=== PATIENT | female | born 1980 | race Caucasian/White ===

== ENCOUNTER 2020-12-08 18:14 | Emergency (ER) | payer MEDICAID ==
[~2020-12-08] VITALS: Ht 162.6 cm; Wt 115.7 kg
[2020-12-08 18:55] LABS: Urine Bacteria FEW /hpf (None Seen); Urine Blood Negative /uL (Negative); Urine Specific Gravity 1.019 (1.001-1.035); Urine WBC <1 /hpf (0 - 5)
[2020-12-08 19:32] LABS: Basophils # (auto) 0 10 ^3/uL (0-0.2); Basophils % (auto) 0.5 % (0.0-2.0); Eosinophils # (auto) 0.3 10 ^3/uL (0-0.8); Eosinophils % (auto) 4.7 % (0.0-7.0); Hematocrit 43.9 % (36.0-46.0); Hemoglobin 15.2 g/dL (12.2-16.2); Lymphocytes # (auto) 1.8 10 ^3/uL (0.4-5.4); Lymphocytes % (auto) 25.1 % (10.0-50.0); Mean Corpuscular Hemoglobin 28.5 pg (28.0-32.0); Mean Corpuscular Hgb Conc. 34.7 g/dL (32.0-36.0); Mean Corpuscular Volume 82.2 fL (80.0-100.0); Monocytes # (auto) 0.3 10 ^3/uL (0-1.3); Monocytes % (auto) 4.7 % (0.0-12.0); Neutrophils # (auto) 4.7 10 ^3/uL (1.6-8.6); Nucleated Red Blood Cells % 0.5 %; Platelet Count (auto) 335 10^3/uL (140-450); Red Blood Cells 5.34 10^6/uL (4.0-5.20); Red Cell Distribution Width 12.6 % (11.8-14.3); White Blood Cell 7.2 10^3/uL (4.4-10.8)
[2020-12-08 19:44] LABS: INR 0.99 (0.9-1.15)
[2020-12-08 19:50] LABS: Alanine Aminotransferase 24 U/L (13-56); Albumin 3.8 g/dL (3.4-5.0); Anion Gap 8 (5-15); Aspartate Aminotransferase 13 U/L (15-37); BUN/Creatinine Ratio 12.5; Blood Urea Nitrogen 8 mg/dL (7-18); Calcium 8.7 mg/dL (8.5-10.1); Carbon Dioxide 27 mmol/L (21-32); Chloride 103 mmol/L (98-107); GFR African American 132 mL/min; GFR Non-African American 109 mL/min; Glucose 101 mg/dL (74-106); Potassium 3.7 mmol/L (3.5-5.1); Sodium 138 mmol/L (136-145)
[2020-12-08 19:52] LABS: Alkaline Phosphatase 57 U/L (45-117); Bilirubin, Total 0.5 mg/dL (0.2-1.0); Total Protein 7.5 g/dL (6.4-8.2)
[2020-12-08 20:00] VITALS: BP 147/78
== END 2020-12-08 23:36 | disposition home or self-care (01) ==
LOC: ER 18:14
DX: A08.4 Viral intestinal infection, unspecified (principal); Z20.822 Contact with and (suspected) exposure to COVID-19
CPT/HCPCS: 36415; 71045; 80053; 81001; 81025; 83605; 83690; 85025; 85610; 87426

== ENCOUNTER 2020-12-22 10:11 | Emergency (ER) | payer MEDICAID ==
[~2020-12-22] VITALS: Ht 162.6 cm; Wt 136.1 kg
[2020-12-22] MEDS ORDERED: PROCHLORPERAZINE EDISYLATE 5 MG/ML 2ML VIAL IV ONE (10:30)
[2020-12-22] MEDS ORDERED: SODIUM CHLORIDE 0.9% 1,000 ML IVB ONE ×2 (10:30→11:30)
[2020-12-22 10:44] VITALS: BP 169/70
[2020-12-22 11:02] LABS: Basophils # (auto) 0.1 10 ^3/uL (0-0.2); Basophils % (auto) 0.7 % (0.0-2.0); Eosinophils # (auto) 0.2 10 ^3/uL (0-0.8); Eosinophils % (auto) 1.7 % (0.0-7.0); Hematocrit 45.5 % (36.0-46.0); Hemoglobin 16.2 g/dL (12.2-16.2); Lymphocytes # (auto) 1.4 10 ^3/uL (0.4-5.4); Lymphocytes % (auto) 13.3 % (10.0-50.0); Mean Corpuscular Hgb Conc. 35.6 g/dL (32.0-36.0); Mean Corpuscular Volume 81.4 fL (80.0-100.0); Monocytes # (auto) 0.3 10 ^3/uL (0-1.3); Monocytes % (auto) 3.3 % (0.0-12.0); Neutrophils # (auto) 8.3 10 ^3/uL (1.6-8.6); Nucleated Red Blood Cells % 1.5 %; Platelet Count (auto) 316 10^3/uL (140-450); Red Blood Cells 5.59 10^6/uL (4.0-5.20); Red Cell Distribution Width 12.9 % (11.8-14.3); White Blood Cell 10.2 10^3/uL (4.4-10.8)
[2020-12-22] MEDS ORDERED: DONNATAL 5ml ORAL Elix (BELLADONNA ALK-PHENOBARB) PO ONE (11:30)
[2020-12-22] MEDS ORDERED: ALUM & MAG HYDROX-SIMETH LIQ(MAALOX) 30 ML PO ONE (11:30)
[2020-12-22] MEDS ORDERED: FAMOTIDINE 20 MG TAB PO ONE (11:30)
[2020-12-22] MEDS ORDERED: PROMETHAZINE HCL 25 MG/ML 1ML IV PRN (11:30)
[2020-12-22 11:35] LABS: Potassium 3.4 mmol/L (3.5-5.1)
[2020-12-22 11:41] LABS: Albumin 3.5 g/dL (3.4-5.0); BUN/Creatinine Ratio 13.4; Bilirubin, Total 0.3 mg/dL (0.2-1.0); Calcium 8.8 mg/dL (8.5-10.1); Total Protein 7.4 g/dL (6.4-8.2)
[2020-12-22 12:10] LABS: Urine Bacteria NONE SEEN /hpf (None Seen); Urine Blood Negative /uL (Negative); Urine Specific Gravity 1.016 (1.001-1.035); Urine WBC 1 /hpf (0 - 5)
[2020-12-22 12:45] LABS: Alcohol, Urine < 3.0 mg/dL (0-10); Amphetamine Screen, Urine NEGATIVE (NEGATIVE); Cannabinoid Screen, Urine POSITIVE (NEGATIVE); Cocaine Screen, Urine NEGATIVE (NEGATIVE); Opiate Scree,Urine NEGATIVE (NEGATIVE); Phencyclidine Screen, Urine NEGATIVE (NEGATIVE)
[2020-12-22 12:52] LABS: Barbiturate Scree,Urine NEGATIVE (NEGATIVE); Benzodiazephine Screen, Urine NEGATIVE (NEGATIVE)
== END 2020-12-22 11:55 | disposition left against medical advice (07) ==
LOC: ER 10:11
DX: R11.2 Nausea with vomiting, unspecified (principal); F12.90 Cannabis use, unspecified, uncomplicated; E11.9 Type 2 diabetes mellitus without complications; R10.13 Epigastric pain; Z90.710 Acquired absence of both cervix and uterus
CPT/HCPCS: 36415; 80053; 80307; 81001; 83690; 83735; 85025; 96361; 96374; 99284; J0780; J7030

== ENCOUNTER 2022-08-24 17:10 | Emergency (ER) | payer MEDICAID, OTHER ==
[~2022-08-24] VITALS: Ht 162.6 cm; Wt 120.0 kg
[2022-08-25] MEDS ORDERED: PERCOT PO (01:00)
[2022-08-25 01:20] VITALS: BP 133/77
== END 2022-08-25 01:22 | disposition home or self-care (01) ==
LOC: ER 17:10
DX: G89.11 Acute pain due to trauma (principal); R51.9 Headache, unspecified; R07.89 Other chest pain; Z90.710 Acquired absence of both cervix and uterus; V49.9XXA Car occupant (driver) (passenger) injured in unspecified traffic accident, initial encounter; Y93.89 Activity, other specified; Y92.410 Unspecified street and highway as the place of occurrence of the external cause; Y99.8 Other external cause status
CPT/HCPCS: 70450; 71045; 71250; 72125; 74176

== ENCOUNTER 2022-12-10 18:16 | Emergency (ER) | payer MEDICAID, OTHER ==
[~2022-12-10] VITALS: Ht 162.6 cm; Wt 113.4 kg
[~2022-12-10 18:16] MED LIST: PERCOT PO
[2022-12-10 19:20] VITALS: BP 157/111
== END 2022-12-10 19:44 | disposition home or self-care (01) ==
LOC: EDBD 18:16 → ER 18:17
DX: F41.8 Other specified anxiety disorders (principal); Z90.710 Acquired absence of both cervix and uterus; Z79.899 Other long term (current) drug therapy
CPT/HCPCS: 93005

== ENCOUNTER 2023-07-19 15:35 | Emergency (ER) | payer MEDICAID ==
[~2023-07-19] VITALS: Ht 162.6 cm; Wt 110.9 kg
[2023-07-19 20:55] LABS: Urine Bacteria NONE SEEN /hpf (None Seen); Urine Blood Negative /uL (Negative); Urine Clarity Clear (Clear); Urine Color Yellow (Yellow); Urine Mucus FEW (None Seen); Urine Protein, UAD Negative (Negative); Urine Specific Gravity 1.025 (1.001-1.035); Urine Urobilinogen Normal (Negative); Urine WBC 1 /hpf (0 - 5); Urine pH 5.5 (5.0-8.0)
[2023-07-19] MEDS ORDERED: LORazepam 0.5 MG TAB PO ONE (22:30)
[2023-07-19] MEDS ORDERED: HYDROcodone-ACET 10/325MG TAB PO ONE (22:30)
[2023-07-19] MEDS ORDERED: KETOROLAC TROMETH 60MG/2ML VIAL IM ONE (22:30)
[2023-07-19] MEDS ORDERED: CYCL-838 PO ×3 (22:34→23:33)
[2023-07-19] MEDS ORDERED: METF-370 PO ×3 (22:34→23:33)
[2023-07-19] MEDS ORDERED: HYDR25TA4 PO ×3 (22:34→23:33)
[2023-07-19] MEDS ORDERED: NAPR-746 PO ×3 (22:34→23:33)
[2023-07-19] MEDS ORDERED: POTA1TAB4 PO ×3 (22:34→23:33)
[2023-07-19] MEDS ORDERED: ACET-1304 PO ×3 (22:34→23:33)
[2023-07-19 22:48] VITALS: BP 150/75; PULSE 84; RESP 20; TEMP 98.7; O2SAT 96
== END 2023-07-19 23:39 | disposition home or self-care (01) ==
LOC: ER 15:35
DX: M79.661 Pain in right lower leg (principal); Z90.710 Acquired absence of both cervix and uterus; Z79.899 Other long term (current) drug therapy
CPT/HCPCS: 81001; 93971; 96372; 99284; J1885

== ENCOUNTER → 2024-11-26 | Outpatient (CLI) | payer MEDICAID ==
[~2024-11-26] MED LIST changes: +ACET-1304 PO; +CYCL-838 PO; +HYDR25TA4 PO; +METF-370 PO; +NAPR-746 PO; +POTA1TAB4 PO
[2024-11-26 12:38] LABS: Basophils # (auto) 0.1 10 ^3/uL (0-0.2); Basophils % (auto) 0.7 % (0.0-2.0); Eosinophils # (auto) 0.2 10 ^3/uL (0-0.8); Eosinophils % (auto) 3.2 % (0.0-7.0); Hemoglobin 15.4 g/dL (12.2-16.2); Lymphocytes # (auto) 1.8 10 ^3/uL (0.4-5.4); Lymphocytes % (auto) 23.6 % (10.0-50.0); Mean Corpuscular Hemoglobin 28.8 pg (28.0-32.0); Mean Corpuscular Hgb Conc. 34.2 g/dL (32.0-36.0); Mean Corpuscular Volume 84.2 fL (80.0-100.0); Monocytes # (auto) 0.6 10 ^3/uL (0-1.3); Monocytes % (auto) 7.4 % (0.0-12.0); Neutrophils # (auto) 4.9 10 ^3/uL (1.6-8.6); Neutrophils % (auto) 65.1 % (37.0-80.0); Platelet Count (auto) 294 10^3/uL (140-450); Red Blood Cells 5.34 10^6/uL (4.0-5.20); Red Cell Distribution Width 13.3 % (11.8-14.3); White Blood Cell 7.5 10^3/uL (4.4-10.8)
[2024-11-26 13:37] LABS: Creatinine, Urine 74.64 mg/dL (30.0-125.0)
[2024-11-26 13:49] LABS: Micro Albumin < 3.0 mg/L (<30.0)
[2024-11-26 13:52] LABS: Alkaline Phosphatase 58 U/L (46-116); Anion Gap 9 (5-15); BUN/Creatinine Ratio 12.9 (10.0-20.0); Calcium 9.9 mg/dL (8.7-10.4); Carbon Dioxide 26 mmol/L (20-31); Chloride 102 mmol/L (98-107); Potassium 4.1 mmol/L (3.5-5.1); Sodium 137 mmol/L (136-145)
[2024-11-26 13:53] LABS: Aspartate Aminotransferase 25 U/L (13-40)
[2024-11-26 13:54] LABS: Bilirubin, Total 0.6 mg/dL (0.2-1.0); HDL Cholesterol 49 mg/dL (40-59); Total Protein 7.3 g/dL (5.7-8.2)
[2024-11-26 13:56] LABS: Alanine Aminotransferase 42 U/L (7-40); Albumin 4.9 g/dL (3.2-4.8); Blood Urea Nitrogen 9 mg/dL (9-23); Cholesterol 275 mg/dL (< 200); Glucose 132 mg/dL (74-106); LDL Cholesterol 202 mg/dL (< 100); Triglycerides 246 mg/dL (< 150)
== END | disposition home or self-care (01) ==
LOC: LAB 11:44
PROVIDERS: ATTEND Nurse Practitioner Family
DX: Z00.01 Encounter for general adult medical examination with abnormal findings (principal); E11.8 Type 2 diabetes mellitus with unspecified complications; E55.9 Vitamin D deficiency, unspecified; E78.00 Pure hypercholesterolemia, unspecified
CPT/HCPCS: 36415; 80053; 80061; 82043; 82306; 82570; 83036; 84443; 85025

== ENCOUNTER 2025-03-16 12:00 | Day surgery (SDC) | payer MEDICAID ==
[2025-03-10 13:19] LABS: Urine Bacteria None Seen /hpf (None Seen)
[2025-03-10 13:26] LABS: Basophils # (auto) 0.1 10 ^3/uL (0-0.2); Basophils % (auto) 0.9 % (0.0-2.0); Eosinophils # (auto) 0.1 10 ^3/uL (0-0.8); Hematocrit 43.9 % (36.0-46.0); Hemoglobin 15.3 g/dL (12.2-16.2); Lymphocytes # (auto) 1.9 10 ^3/uL (0.4-5.4); Lymphocytes % (auto) 27.2 % (10.0-50.0); Mean Corpuscular Hemoglobin 29.3 pg (28.0-32.0); Mean Corpuscular Hgb Conc. 34.7 g/dL (32.0-36.0); Mean Corpuscular Volume 84.3 fL (80.0-100.0); Monocytes # (auto) 0.4 10 ^3/uL (0-1.3); Monocytes % (auto) 5.7 % (0.0-12.0); Neutrophils # (auto) 4.4 10 ^3/uL (1.6-8.6); Neutrophils % (auto) 64.2 % (37.0-80.0); Nucleated Red Blood Cells % 0.3 %; Platelet Count (auto) 291 10^3/uL (140-450); Red Blood Cells 5.21 10^6/uL (4.0-5.20); Red Cell Distribution Width 12.9 % (11.8-14.3); White Blood Cell 6.9 10^3/uL (4.4-10.8)
[2025-03-10 13:41] LABS: INR 0.93 (0.9-1.15); Partial Thromboplastin Time 28.8 SEC (24.5-34.5); Prothrombin Time 9.9 sec (9.3-11.8)
[2025-03-10 13:46] LABS: Alanine Aminotransferase 20 U/L (7-40); Albumin 4.7 g/dL (3.2-4.8); Alkaline Phosphatase 53 U/L (46-116); Anion Gap 7 (5-15); BUN/Creatinine Ratio 11.3 (10.0-20.0); Calcium 9.7 mg/dL (8.7-10.4); Carbon Dioxide 27 mmol/L (20-31); Chloride 107 mmol/L (98-107); Sodium 141 mmol/L (136-145)
[2025-03-10 13:47] LABS: Aspartate Aminotransferase 11 U/L (13-40); Bilirubin, Total 0.5 mg/dL (0.2-1.0); Blood Urea Nitrogen 8 mg/dL (9-23); Glucose 113 mg/dL (74-106)
[2025-03-10 14:26] LABS: Urine Blood Negative /uL (Negative); Urine Clarity Clear (Clear); Urine Color Light-Yellow (Yellow); Urine Protein, UAD Negative (Negative); Urine Specific Gravity 1.017 (1.001-1.035); Urine Squamous Epithelial Cell FEW /hpf (<5); Urine Urobilinogen Normal (Negative); Urine WBC < 1 /HPF (0-5); Urine pH 6.5 (5.0-9.0)
[~2025-03-16] VITALS: Ht 162.6 cm; Wt 122.5 kg
[~2025-03-16 12:00] MED LIST changes: -HYDR25TA4 PO; +IBUP-1456 PO; -METF-370 PO; -NAPR-746 PO; -PERCOT PO; -POTA1TAB4 PO
[2025-03-16] MEDS ORDERED: BUPIVACAINE 0.5% P/F INJ 10 ML VIAL ONE (12:01)
[2025-03-16] MEDS ORDERED: LIDOCAINE W/ EPINEPHRINE 1% 20ML VIAL ONE (12:02)
[2025-03-16] MEDS ORDERED: ceFAZolin 2 GM/D5W50ml 50 ML IV ONE (12:11)
[2025-03-16] MEDS ORDERED: SUCCINYLCHOLINE CHLORIDE 20 MG/ML 10ML VIAL IV ONE (12:37)
[2025-03-16] MEDS ORDERED: MIDAZOLAM HCL 2MG/2ML 2ml VIAL (1mg/ml) ONE (13:05)
[2025-03-16] MEDS ORDERED: fentaNYL CITRATE 100 MCG/2 ML VL ONE (13:05)
[2025-03-16] MEDS ORDERED: HYDROmorphone HCL 2 MG/ML VL/or syr ONE (13:05)
[2025-03-16] MEDS: BUPIVACAINE 0.5% P/F INJ 10 ML VIAL ONE (13:51)
[2025-03-16] MEDS ORDERED: DexAMETHasone SOD PHOS 10MG/1ML VIAL INJ ONE (14:04)
[2025-03-16] MEDS ORDERED: PROPOFOL 10 MG/ML 20 ML IV ONE (14:04)
[2025-03-16] MEDS ORDERED: SUGAMMADEX 200mg/2ml Vial (100MG/ML) IV ONE (14:04)
--- NOTE | 2025-03-16 14:17 | DVHOP2 ---
Operative Report - 2 Report Details Date: 03/16/25 Preop Diagnosis: 1. Left Achilles tendinitis 2. Left calcaneal bone spur 3. Left Sukumar's deformity Postop Diagnosis: Left Achilles tendinitis with bone spur Surgeon: Enrike Tripp MD Anesthesiologist: See anesthesia Anesthesia: General Implant: [employer]rex speed bridge Consent: The patient was informed of the risks and benefits of the procedure. These include but are not limited to complications of anesthesia, postoperative infection, incomplete relief of symptoms, recurrence of symptoms, damage to blood vessels, nerves and tendons, deep venous thrombosis, pulmonary embolism and possible need for repeat surgery in the future. Complications: None Estimated Blood Loss: Minimal Fluids: See anesthesia Findings: Consistent with the diagnosis Indications for Surgery: Worsening left foot pain Name of Procedure Performed 1. Left foot achilles debridment (93487) 2. Left foot bone spur excision (41950) Procedure Details Procedure Details: PRE-PROCEDURE INFORMATION: In the pre-op holding area, the extremity to be operated on was clearly marked and the patient verified correct laterality of the marking. The patient was transferred to the OR table and placed in a supine position. A timeout was performed in which identification of the correct patient, procedure, location, and materials was done. The left foot and leg were prepped and draped in normal sterile fashion. The foot and leg were exsanguinated and the thigh tourniquet was inflated to 250 mmHg. DESCRIPTION OF PROCEDURE: Attention was directed to the left posterior heel where a curvilinear incision was made over the posterior heel. Care was taken throughout dissection to avoid damage to neurovascular or tendinous structures. This incision was designed in a manner that, as the incision was deepened to the level of the Achilles, there were 2 flaps that were able to be opened and sutured down so as to be able to gain excellent exposure to the Achilles tendon. The peritenon was incised to be able to reveal the tendon, which appeared to have microtearing and fibrosis. All devitalized tissue and fibrosis was debrided off of the Achilles tendon. The Achilles was then detached from the posterior heel where the large exostosis was identified. Utilizing osteotomes, bone rasps, and other instrumentation, the exostosis of the posterior calcaneus was adequately resected. The area was smoothed down with bone rasps and revealed a normal posterior calcaneus after resection of the exostosis. Next, the Achilles tendon was reattached to the posterior calcaneus using the [employer] SpeedBridge set consisting of bone anchors and the suture material. After the SpeedBridge set was used, the Achilles appeared to be well reattached to the posterior calcaneus and there appeared to be no immediate complications from that reattachment. All surgical wounds were irrigated copiously with saline and closed in layers with the aforementioned suture material. A dry sterile dressing was placed on the surgical extremity. The patient was placed in a cam boot POSTOPERATIVE INFORMATION: The patient tolerated the above noted procedure and anesthesia well and was transferred to the PACU with vital signs stable, and vascular status intact with capillary refill intact to all digits. Postoperative instructions reviewed in detail with the patient with written instructions provided. Patient will return to clinic in approximately 10-14 days for first postoperative visit. Patient has the number of the clinic and was instructed to call prior to that time should any problems, questions, or concerns arise. Condition Good Disposition Home ENRIKE TRIPP DPM Mar 16, 2025 14:17
[2025-03-16 14:25] VITALS: PULSE 88; RESP 15; O2SAT 93
[2025-03-16] MEDS ORDERED: ePHEDrine SULFATE 50 MG/ML AMP IV PRN (14:45)
[2025-03-16] MEDS ORDERED: HYDROmorphone HCL 2 MG/ML VL/or syr IV PRN (14:45)
[2025-03-16] MEDS ORDERED: hydrALAZINE HCL 20 MG/ML VL IV PRN (14:45)
[2025-03-16] MEDS ORDERED: MORPHINE SULFATE 4 MG/ML SYR/VIAL IV PRN (14:45)
[2025-03-16] MEDS ORDERED: KETOROLAC TROMETH 30 MG/ML 1ML VIAL IV ONE (14:45)
[2025-03-16] MEDS ORDERED: ONDANSETRON HCL 4 MG/2 ML VIAL IV ONE (14:45)
[2025-03-16] MEDS ORDERED: MIDAZOLAM HCL 2MG/2ML 2ml VIAL (1mg/ml) IV PRN (14:45)
[2025-03-16 15:40] VITALS: BP 119/63; PULSE 88; RESP 14; O2SAT 99
== END 2025-03-16 16:10 | disposition home or self-care (01) ==
LOC: SUR 12:00
PROVIDERS: ATTEND Podiatrist
DX: M76.62 Achilles tendinitis, left leg (principal); M77.32 Calcaneal spur, left foot; M92.62 Juvenile osteochondrosis of tarsus, left ankle; G89.18 Other acute postprocedural pain; G89.29 Other chronic pain; I10 Essential (primary) hypertension; E11.9 Type 2 diabetes mellitus without complications; F12.91 Cannabis use, unspecified, in remission; Z79.899 Other long term (current) drug therapy; Z90.710 Acquired absence of both cervix and uterus; Z98.891 History of uterine scar from previous surgery
CPT/HCPCS: 27654; 28118; 36415; 64450; 80053; 81001; 84702; 85025; 85610; 85730; C1713; J0330; J0690; J1100; J1171; J2250; J2704; J3010; J3490